=== PATIENT | male | born 1985 | race Caucasian/White ===

== ENCOUNTER 2017-10-13 04:48 | Emergency (ER) | payer SELFPAY ==
[~2017-10-13] VITALS: Ht 182.9 cm; Wt 77.1 kg
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
[2017-10-13] MEDS ORDERED: HYDR-971 PO (07:17)
[2017-10-13] MEDS ORDERED: DIPHTH,PERTUSS(ACELL),TET TOX 0.5 ML DISP.SYRIN. VAX IM ONE (07:45)
[2017-10-13] MEDS ORDERED: KETAMINE HCL 500 MG/10 ML VIAL. IV ONE (07:45)
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
[2017-10-13 08:40] VITALS: BP 122/73
== END 2017-10-13 08:53 | disposition home or self-care (01) ==
LOC: ER 04:48
DX: M25.511 Pain in right shoulder (principal); M25.522 Pain in left elbow; M25.521 Pain in right elbow; M54.2 Cervicalgia; Z91.048 Other nonmedicinal substance allergy status; V28.9XXA Unspecified motorcycle rider injured in noncollision transport accident in traffic accident, initial encounter; Y93.89 Activity, other specified; Y92.410 Unspecified street and highway as the place of occurrence of the external cause; Y99.8 Other external cause status
CPT/HCPCS: 29105; 70450; 71045; 72125; 73030; 73080; 90471; 90715; 96374; 99284; J3490